=== PATIENT | male | born 1960 | race Two or more races ===

== ENCOUNTER 2019-06-03 06:41 | Day surgery (SDC) | payer OTHER | END 2019-06-03 12:15 | disposition home or self-care (01) | LOC: AMB-ENDOS 06:41 | DX: D12.2 Benign neoplasm of ascending colon (principal); D12.5 Benign neoplasm of sigmoid colon; K64.2 Third degree hemorrhoids ==

== ENCOUNTER 2020-07-23 11:51 | Outpatient (CLI) | payer OTHER | END 2020-07-23 11:52 | disposition home or self-care (01) | LOC: PPH VACUNA 11:51 | DX: Z23 Encounter for immunization (principal) ==

== ENCOUNTER 2020-12-25 08:00 | Outpatient (CLI) | payer OTHER | END 2020-12-25 08:30 | disposition home or self-care (01) | LOC: PPH VACUNA 08:00 | PROVIDERS: ATTEND Emergency Medicine Pediatric Emergency Medicine | DX: Z23 Encounter for immunization (principal) ==

== ENCOUNTER 2021-04-10 12:30 | Outpatient (CLI) | payer OTHER | END 2021-04-10 13:00 | disposition home or self-care (01) | LOC: ASH CLINIC 12:30 | PROVIDERS: ATTEND Emergency Medicine | DX: U07.1 COVID-19 (principal); Z23 Encounter for immunization ==

== ENCOUNTER → 2023-01-27 06:00 | Outpatient (CLI) | payer OTHER ==
[~2023-01-27] VITALS: Ht 177.8 cm; Wt 86.2 kg
[~2023-01-27 06:00] MED LIST: ADULT LOW DOSE81 M1 PO; COZAAR100 MG PO; LEVSIN0.125 MG PO; NORVASC2.5 M1 PO; PEPCID AC20 MG PO; PLAQUENIL PO; TOPROL XL100 M1 PO
[2023-01-27 10:20] LABS: PH,URINE 5.5 (5.0-8.0); URINE APPEARANCE Clear; URINE BILIRRUBIN Negative (NEGATIVE); URINE BLOOD Negative; URINE COLOR Yellow; URINE GLUCOSE Negative (NEGATIVE); URINE LEUKOCYTE Negative; URINE NITRATE Negative; URINE PROTEIN Negative (NEGATIVE); URINE UROBILINOGEN 0.2 E.U./dl
[2023-01-27 10:21] LABS: URINE RBC 4.1 uL (0.0-20.8)
[2023-01-27 10:25] LABS: HEMATOCRIT 43.1 % (39.0-48.0); HEMOGLOBIN 14.9 g/dL (13-16.00); MEAN CELL VOLUME 91.7 fL (80.0-100.00); MEAN CORPUSCULAR HEMOGLOBIN 31.7 pg (27.00-32.0); MEAN CORPUSCULAR HGB CONC 34.6 g/dl (32.0-36.0); PLATELET COUNT 275 K/uL (150-450); RED CELL DISTRIBUTION WIDTH 13.2 % (11.5-14.5)
[2023-01-27 11:05] LABS: PARTIAL THROMBOPLASTIN TIME 28.5 SECONDS (22.0-34.0); PROTHROMBIN TIME 10.5 SECONDS (9.0-11.5)
[2023-01-27 11:07] LABS: ALBUMIN 4.2 gm/dL (3.4-5.0); BILIRUBIN TOTAL 0.85 mg/dL (0.3-1.2); BILIRUBIN,CONJUGATED 0.21 mg/dL (0.0-0.2); BILIRUBIN,UNCONJUGATED 0.64 mg/dL (0.0-0.6); CALCIUM 9.6 mg/dL (8.5-10.1); CREATININE SERUM 0.8 mg/dL (0.70-1.30); GFR 97.63; POTASSIUM 4.61 mEq/L (3.5-5.1)
== END | disposition home or self-care (01) ==
LOC: LAB 06:00 → ADM 07:30 → EDSTATUS 02-01 07:30 → CIR.AMB 02-01 07:30
PROVIDERS: ATTEND Surgery
DX: Z01.810 Encounter for preprocedural cardiovascular examination (principal); Z01.811 Encounter for preprocedural respiratory examination; Z01.812 Encounter for preprocedural laboratory examination; Z01.818 Encounter for other preprocedural examination; Z20.818 Contact with and (suspected) exposure to other bacterial communicable diseases; Z20.828 Contact with and (suspected) exposure to other viral communicable diseases; K80.20 Calculus of gallbladder without cholecystitis without obstruction

== ENCOUNTER 2023-03-06 10:16 | Emergency (ER) | payer OTHER ==
[~2023-03-06] VITALS: Ht 177.8 cm; Wt 84.4 kg
[~2023-03-06 10:16] MED LIST changes: -LEVSIN0.125 MG PO; -NORVASC2.5 M1 PO; -PEPCID AC20 MG PO
[2023-03-06] MEDS ORDERED: NORVASC2.5 M1 PO (10:24)
[2023-03-06 11:49] LABS: PH,URINE 5.5 (5.0-8.0); URINE APPEARANCE Turbid; URINE BILIRRUBIN Negative (NEGATIVE); URINE BLOOD Negative; URINE COLOR Yellow; URINE GLUCOSE Negative (NEGATIVE); URINE LEUKOCYTE Negative; URINE NITRATE Negative; URINE PROTEIN Negative (NEGATIVE)
[2023-03-06 11:55] LABS: URINE BACTERIA 6.2 uL (0.0-1933); URINE EPITHELIAL CELLS 2.7 uL (0.0-38.8); URINE RBC 3.7 uL (0.0-20.8); URINE WBC 3.4 uL (0.0-23.2)
[2023-03-06 12:09] LABS: HEMATOCRIT 42.8 % (39.0-48.0); HEMOGLOBIN 14.4 g/dL (13-16.00); MEAN CELL VOLUME 92.5 fL (80.0-100.00); MEAN CORPUSCULAR HEMOGLOBIN 31.1 pg (27.00-32.0); MEAN CORPUSCULAR HGB CONC 33.6 g/dl (32.0-36.0); PLATELET COUNT 258 K/uL (150-450); RED BLOOD COUNT 4.63 M/uL (4.00-6.00); RED CELL DISTRIBUTION WIDTH 12.9 % (11.5-14.5)
[2023-03-06 12:55] LABS: BILIRUBIN TOTAL 1.06 mg/dL (0.3-1.2); BILIRUBIN,CONJUGATED 0.39 mg/dL (0.0-0.2); BILIRUBIN,UNCONJUGATED 0.67 mg/dL (0.0-0.6); CALCIUM 9.3 mg/dL (8.5-10.1); CREATININE SERUM 0.9 mg/dL (0.70-1.30); GFR 85.23; POTASSIUM 3.99 mEq/L (3.5-5.1)
[2023-03-06 13:09] LABS: PARTIAL THROMBOPLASTIN TIME 28.1 SECONDS (22.0-34.0); PROTHROMBIN TIME 10.5 SECONDS (9.0-11.5)
[2023-03-06] MEDS ORDERED: PEPCID AC20 MG PO (14:16)
[2023-03-06] MEDS ORDERED: LEVSIN0.125 MG PO (14:16)
== END 2023-03-06 14:29 | disposition home or self-care (01) ==
LOC: ER 10:16
PROVIDERS: General Practice
DX: K80.20 Calculus of gallbladder without cholecystitis without obstruction (principal); R10.84 Generalized abdominal pain

== ENCOUNTER 2023-03-29 06:10 | Day surgery (SDC) | payer OTHER ==
[~2023-03-29 06:10] MED LIST changes: +LEVSIN0.125 MG PO; +NORVASC2.5 M1 PO; +PEPCID AC20 MG PO
[2023-03-29] MEDS ORDERED: PERCOCET 5-3251 EACH PO (12:03)
== END 2023-03-29 16:50 | disposition home or self-care (01) ==
LOC: CIR.AMB 06:10
PROVIDERS: ATTEND Surgery
DX: K80.20 Calculus of gallbladder without cholecystitis without obstruction (principal); Z20.822 Contact with and (suspected) exposure to COVID-19

== ENCOUNTER 2023-04-12 07:22 | Outpatient (CLI) | payer OTHER ==
[~2023-04-12 07:22] MED LIST changes: +PERCOCET 5-3251 EACH PO
== END 2023-04-12 07:35 | disposition home or self-care (01) ==
LOC: TOM 07:22
PROVIDERS: ATTEND Internal Medicine Gastroenterology
DX: K21.9 Gastro-esophageal reflux disease without esophagitis (principal); Z12.11 Encounter for screening for malignant neoplasm of colon; K44.9 Diaphragmatic hernia without obstruction or gangrene; K30 Functional dyspepsia; Z86.010 Personal history of colon polyps; K63.5 Polyp of colon; R10.10 Upper abdominal pain, unspecified; K80.20 Calculus of gallbladder without cholecystitis without obstruction

== ENCOUNTER 2024-05-13 07:13 | Outpatient (CLI) | payer OTHER | END 2024-05-13 07:15 | disposition home or self-care (01) | LOC: TOM 07:13 | PROVIDERS: ATTEND Internal Medicine | DX: R10.32 Left lower quadrant pain (principal) ==